=== PATIENT | female | born 1935 | race Caucasian/White ===

== ENCOUNTER 2024-04-16 09:30 | Outpatient (CLI) | payer MEDICARE, OTHER | END 2024-04-16 09:31 | disposition home or self-care (01) | LOC: BICCT 09:30 | PROVIDERS: ATTEND Physician Assistant Medical | DX: K52.9 Noninfective gastroenteritis and colitis, unspecified (principal); R63.4 Abnormal weight loss; N28.1 Cyst of kidney, acquired; M47.9 Spondylosis, unspecified; M51.36 Other intervertebral disc degeneration, lumbar region; M71.38 Other bursal cyst, other site; Z90.49 Acquired absence of other specified parts of digestive tract; Z90.710 Acquired absence of both cervix and uterus | CPT/HCPCS: 74177 ==